=== PATIENT | female | born 1990 ===

== ENCOUNTER 2017-04-12 20:56 | Emergency (ER) | payer BC ==
[2017-04-12 21:19] VITALS: BP 137/80
--- NOTE | 2017-04-12 21:22 | UC ---
Lower Extremity/Ankle HPI - HPI Summary HPI Summary: 27 YEAR OLD FEMALE WITH COMPLAINS OF LEFT ANKLE PAIN/SWELLING WHILE FALLING DURING ROLLER DERBY. - History of Current Complaint Chief Complaint: UCLowerExtremity Stated Complaint: ANKLE INJURY Time Seen by Provider: 04/12/17 21:21 Hx Obtained From: Patient Hx Last Menstrual Period: 1 WEEK AGO Onset/Duration: Sudden Onset Severity Initially: Severe Severity Currently: Severe Pain Scale Used: 0-10 Numeric - 8 Aggravating Factor(s): Standing Alleviating Factor(s): Rest Able to Bear Weight: Yes - Allergies/Home Medications Allergies/Adverse Reactions: Allergies Allergy/AdvReac Type Severity Reaction Status Date / Time COCONUT Allergy Severe MOUTH Uncoded 04/12/17 21:20 ITCHES Home Medications: Home Medications Fluticasone NASAL * [Flonase *] 04/12/17 [History] PMH/Surg Hx/FS Hx/Imm Hx Previously Healthy: Yes - Surgical History Surgical History: Yes Surgery Procedure, Year, and Place: ENDOSCOPY AFTER SWALLOWING A COIN - Social History Alcohol Use: Occasionally Substance Use Type: None Smoking Status (MU): Never Smoked Tobacco Review of Systems Constitutional: Negative Skin: Negative Eyes: Negative ENT: Negative Respiratory: Negative Cardiovascular: Negative Gastrointestinal: Negative Genitourinary: Negative Motor: Negative Neurovascular: Negative Musculoskeletal: Other: - LEFT ANKLE PAIN/SWELLING Neurological: Negative Psychological: Negative All Other Systems Reviewed And Are Negative: Yes Physical Exam Triage Information Reviewed: Yes Vital Signs: Initial Vital Signs Temp 36.9 C 04/12/17 21:15 Pulse 102 04/12/17 21:15 Resp 16 04/12/17 21:15 BP 137/80 04/12/17 21:15 Pulse Ox 100 04/12/17 21:15 Eye Exam: Normal ENT Exam: Normal Dental Exam: Normal Neck exam: Normal Neck: Positive: 1 Respiratory Exam: Normal Cardiovascular Exam: Normal Abdominal Exam: Normal Musculoskeletal: Positive: Other: - LEFT ANKLE PAIN/SWELLING Neurological Exam: Normal Psychological Exam: Normal Skin Exam: Normal Lower Extremity Course/Dx - Differential Dx/Diagnosis Provider Diagnoses: LEFT ANKLE SWELLING/PAIN Discharge - Discharge Plan Condition: Stable Disposition: HOME Prescriptions: Acetaminop/Codeine 30 MG TAB* [Tylenol/Codeine 30 MG TAB*] 1 tab PO Q8H PRN #9 tab MDD 3 PRN Reason: Pain Patient Education Materials: Ankle Fracture (ED) Referrals: No Primary Care Phys,NOPCP [Primary Care Provider] - Ehsan Alanis MD [Medical Doctor] -
--- NOTE | 2017-04-12 21:53 | RAD ---
INDICATION: Left ankle injury. TECHNIQUE: 3 views of the left ankle were obtained. FINDINGS: There is soft tissue swelling present along the anterolateral aspect of the ankle. There is an oblique intra-articular fracture of the distal fibula. The distal fragment is displaced slightly lateral approximately one cortical diameter. There is also a tiny avulsion fracture fragment arising from the tip of the medial malleolus measuring approximately 2 mm in size. IMPRESSION: 1. OBLIQUE SLIGHTLY DISPLACED INTRA-ARTICULAR FRACTURE OF THE DISTAL FIBULA. 2. TINY AVULSION FRACTURE FRAGMENT ARISING FROM THE TIP OF THE MEDIAL MALLEOLUS.
[2017-04-12] MEDS ORDERED: Acetaminop/Codeine 30 MG TAB* 1 TAB (300 MG/30 MG) PO ONE (22:07)
[2017-04-12] MEDS ORDERED: Acetaminophen TAB* 325 MG PO ONE (22:29)
== END 2017-04-12 22:42 | disposition home or self-care (01) ==
LOC: UCEAST 20:56
DX: M25.472 Effusion, left ankle (principal); M25.572 Pain in left ankle and joints of left foot; Z91.018 Allergy to other foods
CPT/HCPCS: 99203; A9270-GY; G0463